=== PATIENT | female | born 1990 | race Caucasian/White ===

== ENCOUNTER 2024-10-15 21:18 | Emergency (ER) | payer MEDICAID, SELFPAY ==
[2024-10-15 21:21] VITALS: BMI 33.6
--- NOTE | 2024-10-15 21:29 | EKG_ITS ---
[facility] Test Date: 2024-10-15 Pat Name: FLORIAN HENRIQUEZ Department: Room: - Gender: Female [employer]: : 1990 Requested By: ED Temporary Provider Order Number: [id number] Reading MD: ED Temporary Provider Measurements Intervals [place] Rate: 67 P: 23 ID: [id number] QRS: 1 QRSD: 98 T: 40 QT: 358 QTc: 378 Interpretive Statements SINUS RHYTHM No previous ECG available for comparison /store/S0/[id number]/ecg/[id number].pdf
[2024-10-15 21:32] VITALS: BP 162/99; PULSE 69; RESP 20; TEMP 36.8; O2SAT 97
--- NOTE | 2024-10-15 22:58 | PD.EDARRY ---
ED Arrhythmia Palp. RME/HPI General Chief Complaint: Arrhythmia/Palpitations Stated Complaint: PALTITATIONS Time Seen by Provider: 10/15/24 22:34 Arrival date/time: 10/15/24 21:18 RME / HPI RME / HPI narrative: 33-year-old female presents to the ED with a complaint of palpitations. She states she has a history of atrial fibrillation which comes and goes. She states that tonight at approximately 8:00 she developed palpitations but unknown rate. She takes carvedilol 6.25 mg twice daily and states she has been taking this medication as prescribed. She admits to caffeine consumption yesterday, 1 can of diet soda. She had some shortness of breath but denies having any chest pain. She feels normal now with the exception of some mild dizziness. She denies any recent illness with fever, chills, cough, upper respiratory complaints, nausea or vomiting, diarrhea or abdominal pain. She denies dysuria or frequency. Related Data Previous Rx's ?Medication ?Instructions ?Recorded ibuprofen 800 mg tablet (IBU) 800 mg PO Q8H PRN pain #30 tabs 03/29/21 amoxicillin 500 mg tablet 500 mg PO TID #30 tabs 01/12/23 hydrocodone 5 mg-acetaminophen 325 1 tab PO Q8H PRN pain #10 tabs 01/12/23 mg tablet ibuprofen 800 mg tablet 800 mg PO Q8H PRN pain #30 tabs 01/12/23 Allergies Allergy/AdvReac Type Severity Reaction Status Date / Time latex Allergy Severe Hives Verified 10/15/24 21:26 Review of Systems Review of Systems Systems Reviewed: All systems reviewed, normal except as documented Past Medical History Social History SMOKING STATUS: Never smoker Past Medical History Comments PMH COMMENT: Paroxysmal atrial fibrillation ED Exam Narrative Physical exam: Alert and oriented 33-year-old female, no acute distress, vital signs blood pressure 162/99, pulse 69, respirations 20 nonlabored, temp 98.2, O2 sat 97% on room air. Cardiovascular regular rate and rhythm without murmurs. Lungs are clear, abdomen is soft and nontender. Course Course Course Narrative: CBC reveals a normal white count with normal H&H and platelets. CMP reveals normal renal function and liver function. Troponin is less than 0.002 and CRP is less than 0.5. Amylase and lipase are normal at 39/41. Urinalysis reveals clear yellow urine with a specific gravity of 1.027 with negative protein, 3+ glucose, trace ketones, trace blood negative nitrites, negative leukocyte Estrace, 11 RBCs, 2 WBCs and 1+ bacteria. hCG is negative. Drug screen is negative. XR chest is negative for acute process. [facility], patient eloped. Quality Measures none Orders Category Date Time Status EKG (ED ONLY) *Do not use* NOW Care 10/15/24 21:29 Completed EKG (ED Only) Stat Exams 10/15/24 21:29 Draft Vital Signs Vital signs: Vital Signs Temperature 98.2 F 10/15/24 21:32 Pulse Rate 69 10/15/24 21:32 Respiratory Rate 20 10/15/24 21:32 Blood Pressure 162/99 H 10/15/24 21:32 Pulse Oximetry (%) 97 10/15/24 21:32 Oxygen Delivery Method Room Air 10/15/24 21:32 Arrhythmia/Palpitations MDM Narrative MDM Narrative:: 33-year-old female presents to the ED with a complaint of palpitations. She states she has a history of atrial fibrillation which comes and goes. She states that tonight at approximately 8:00 she developed palpitations but unknown rate. She takes carvedilol 6.25 mg twice daily and states she has been taking this medication as prescribed. She admits to caffeine consumption yesterday, 1 can of diet soda. She had some shortness of breath but denies having any chest pain. She feels normal now with the exception of some mild dizziness. She denies any recent illness with fever, chills, cough, upper respiratory complaints, nausea or vomiting, diarrhea or abdominal pain. She denies dysuria or frequency. Alert and oriented 33-year-old female, no acute distress, vital signs blood pressure 162/99, pulse 69, respirations 20 nonlabored, temp 98.2, O2 sat 97% on room air. Cardiovascular regular rate and rhythm without murmurs. Lungs are clear, abdomen is soft and nontender. CBC reveals a normal white count with normal H&H and platelets. CMP reveals normal renal function and liver function. Troponin is less than 0.002 and CRP is less than 0.5. Amylase and lipase are normal at 39/41. Urinalysis reveals clear yellow urine with a specific gravity of 1.027 with negative protein, 3+ glucose, trace ketones, trace blood negative nitrites, negative leukocyte Estrace, 11 RBCs, 2 WBCs and 1+ bacteria. hCG is negative. Drug screen is negative. XR chest is negative for acute process. While waiting for her workup to be complete in the lobby, patient eloped. Patient data External records reviewed:: [facility] previous records Clinical information provided by:: patient Social determinants that could affect healthcare access:: none Patient has the following chronic illnesses:: Paroxysmal atrial fibrillation per patient oral history. How is presenting disease/condition affected by chronic disease/condition?: exacerbated by Evaluation data The following diagnostics were reviewed and interpreted by me:: lab results, radiology exam(s) and EKG tracing(s) Lab and/or radiology exams considered but not ordered:: N/A Interpretation Summary: CBC reveals a normal white count with normal H&H and platelets. CMP reveals normal renal function and liver function. Troponin is less than 0.002 and CRP is less than 0.5. Amylase and lipase are normal at 39/41. Urinalysis reveals clear yellow urine with a specific gravity of 1.027 with negative protein, 3+ glucose, trace ketones, trace blood negative nitrites, negative leukocyte Estrace, 11 RBCs, 2 WBCs and 1+ bacteria. hCG is negative. Drug screen is negative. XR chest is negative for acute process. Medications / Prescriptions Medications or Prescriptions considered but not ordered:: N/A Medication administrations:: N/A Consultations Consultation(s) initiated? (list below): No Diagnosis Differential diagnosis arrhythmia/palpitations: palpitations, anxiety, sinus tachycardia, artial fibrillation, artial flutter, ventricular premature beats, supraventricular tachycardia and ventricular tachycardia Most likely diagnosis given after review of the tests above:: Paroxysmal atrial fibrillation Admission Indicated Admission indicated?: not indicated Explain why admission is indicated or not indicated:: Patient is stable for discharge Admission Request Was there a request for admission?: No Admission Attestation Admission request attestation: Patient eloped Disposition Plan Disposition Plan: other (specify) (Elopement) Discharge Plan Plan Patient Disposition: Elopement Prescriptions/Referrals Prescriptions/Med Rec: No Action ibuprofen [IBU] 800 mg tablet 800 mg PO Q8H PRN (Reason: pain) Qty: 30 0RF amoxicillin 500 mg tablet 500 mg PO TID Qty: 30 0RF hydrocodone-acetaminophen 5-325 mg tablet 1 tab PO Q8H MDD 10 PRN (Reason: pain) Qty: 10 0RF ibuprofen 800 mg tablet 800 mg PO Q8H PRN (Reason: pain) Qty: 30 0RF Referrals: Cirilo Colon FNP [Primary Care Provider] - In 1 week Problem List Clinical Impression: AF (paroxysmal atrial fibrillation) Patient/Caregiver Discharge Instructions Print Language: Czech CHRISTI/KILN FEEDER Supervising Physician CHRISTI/KUNAL Supervising Physician: Dr. To
--- NOTE | 2024-10-15 23:02 | XR_ITS ---
Examination: PA lateral chest 2 views TECHNIQUE: Upright PA and lateral chest 2 views Date and time: October 15, 2024 11:16 PM INDICATIONS: Shortness of breath. FINDINGS: Normal heart size Lungs are clear. Osseous structures are intact IMPRESSION: No active disease
[2024-10-15 23:36] LABS: Basophils # (Auto) 0.1 Thou/mm3 (0.0-0.2); Basophils % (Auto) 1 % (0-2.5); Eosinophils # (Auto) 0.2 Thou/mm3 (0.0-0.5); Eosinophils % (Auto) 2 % (0-10); Hematocrit 37.7 % (36.0-46.0); Immature Granulocytes % (Auto) 0 % (0-0); Immature Granulocytes Auto 0.02 Thou/mm3 (0.00-0.00); Lymphocytes # (Auto) 3.6 Thou/mm3 (1.0-4.8); Lymphocytes % (Auto) 36 % (10-50); Mean Corpuscular HGB Conc 34.5 g/dl (31.0-37.0); Mean Corpuscular Hemoglobin 28.1 pg (25.0-35.0); Mean Corpuscular Volume 81 fL (80-100); Monocytes # (Auto) 0.7 Thou/mm3 (0.0-0.8); Monocytes % (Auto) 7 % (0-12); Neutrophils # (Auto) 5.5 Thou/mm3 (1.8-7.7); Neutrophils % (Auto) 55 % (37-80); Nucleated Red Blood Cell % 0 /100 WBC (0); Platelet Count 335 Thou/mm3 (140-440); RDW Standard Deviation 36.3 fL (36.4-46.3); Red Blood Count 4.63 Miln/mm3 (4.00-5.20)
[2024-10-15 23:49] LABS: Collection Type, Urine Clean Catch
[2024-10-15 23:56] LABS: HCG Qualitative,Urine Negative
[2024-10-16 00:02] LABS: Bacteria,Urine 1+; Bilirubin,Urine Negative (Negative); Blood,Urine Trace (Negative); Clarity,Urine Clear (Clear/Hazy); Color,Urine Lt-Yellow (Lt Yel-Yel); Glucose, Urine 3+ (Negative); Ketones,Urine Trace (Negative); Leukocyte Esterase,Urine Negative (Negative); Nitrite,Urine Negative (Negative); PH,Urine 5.5 (5.0-7.0); Protein,Urine Negative (Neg - Trace); RBC,Urine 11 /hpf (0-3); Specific Gravity,Urine 1.027 (1.001-1.035); Squamous Epithelial Cell,Urine 1 /hpf (0-5); Urobilinogen,Urine Negative mg/dL (0.0-1.0); WBC,Urine 2 /hpf (0-5)
[2024-10-16 00:47] LABS: Amphetamine/Methamp Scrn,U Negative (Negative); Barbiturate Screen,Urine Negative (Negative); Benzodiazepines Screen,Urine Negative (Negative); Benzoylecgonine Screen, Ur Negative (Negative); Fentanyl Screen,Urine Negative (Negative); Opiate Screen,Urine Negative (Negative); THC Screen,Urine Negative (Negative)
[2024-10-16 01:04] LABS: Alanine Aminotransferase 26 U/L (10-49); Albumin, Serum 4.9 gm/dL (3.5-5.0); Albumin/Globulin Ratio 2.1 (1.2-2.2); Alkaline Phosphatase 91 U/L (46-116); Anion Gap 8 (7-16); Aspartate Amino Transferase 19 U/L (0-34); BUN/Creatinine Ratio 13 Ratio (12-20); Bilirubin,Total 0.3 mg/dL (0.3-1.2); Blood Urea Nitrogen 12 mg/dL (9-23); Calcium 10.5 mg/dL (8.3-10.6); Calcium (Corrected) 10.5 mg/dL (8.5-10.1); Carbon Dioxide 26.8 mMol/L (20.0-31.0); Chloride 100 mMol/L (98-107); Creatinine (Component) 0.9 mg/dL (0.6-1.3); Estimated Creatinine Clearance 106.6 mL/min (>60); Globulin 2.3 gm/dL (2.3-3.5); Glucose 156 mg/dL (74-106); Lipase 41 U/L (12-53); Osmolality,Calculated 272 (275-295); Potassium 3.9 mMol/L (3.4-5.1); Sodium 135 mMol/L (136-145); Total Protein 7.2 gm/dL (5.7-8.2); Troponin I < 0.002 ng/mL (0.0-0.045); eGFR > 60 See Note
--- NOTE | 2024-10-16 01:19 | PC.NURSE ---
NO ANSWER FOR REVIEW
--- NOTE | 2024-10-16 01:30 | PC.NURSE ---
NA FOR REVIEW
--- NOTE | 2024-10-16 01:47 | PC.NURSE ---
NA FOR REVIEW
[2024-10-16 01:55] LABS: Amylase 39 U/L (30-118); C-Reactive Protein < 0.5 mg/dL (0.0-0.9)
== END 2024-10-16 01:48 | disposition left against medical advice (07) ==
LOC: SERX 23:10
PROVIDERS: Physician Assistant; Emergency Provider Emergency Medicine
DX: I48.0 Paroxysmal atrial fibrillation (principal); R06.02 Shortness of breath; Z53.29 Procedure and treatment not carried out because of patient's decision for other reasons
CPT/HCPCS: 36415; 71046; 80053; 80307; 81001; 81025; 82150; 83690; 84484; 85025; 86140; 93005; 99281